=== PATIENT | female | born 1970 | race Hispanic/Latino ===

== ENCOUNTER → 2017-05-14 | Day surgery (SDC) | payer BC, OTHER ==
[~2017-05-14] MED LIST: FENTANYL CITRATE/PF 100MCG/2 ML INJ ONE; HYDROCHLOROTHIA25 MG PO; HYOSCYAMINE SULFATE 0.5 MG/ML AMP ONE; IRON PO; LIDOCAINE HCL 2% LOCAL INJ 5 ML SDV VIAL INJ ONE; MIDAZOLAM HCL 2 MG/2 ML VIAL ONE; PROPOFOL IV EMULSION 10 MG/ML 50 ML VIAL ONE; VITAMIN B12
--- NOTE | 2017-05-14 10:10 | Operative Report ---
DATE OF PROCEDURE: May 14, 2017 PROCEDURE PERFORMED: Esophagogastroduodenoscopy and a colonoscopy with polypectomy. REFERRING PHYSICIAN: Dr. Ban Polk INDICATIONS FOR EGD: Heartburn, indigestion, bloating. INDICATIONS FOR COLONOSCOPY: Lower abdominal pain, bright red blood per rectum. MEDICATION: Patient was done under MAC. Please see anesthesiologist note. PROCEDURE IN DETAIL: With the patient in left lateral decubitus position, flexible fiberoptic Olympus gastroscope was introduced into the esophagus under direct visualization without any difficulty. There were some longitudinal furrows and some concentric rings noted in the esophagus compatible with eosinophilic esophagitis, and biopsies were obtained. An erosion was noted in the distal esophagus. The GE junction was nodular and friable, and was biopsied. The scope was then advanced with ease into her stomach traversing a small sliding hiatal hernia. Mucosa overlying the antrum and the body revealed some diffuse erythema and moderate edema, and biopsies were obtained and sent to stain for H. pylori. The pylorus was of normal contour and shape, it was intubated with ease and the scope was advanced all the way to the second portion of the duodenum. The scope was then withdrawn slowly. Mucosa overlying the proximal second portion and the duodenal bulb appeared to be within normal limits. The scope was then withdrawn back into the stomach and retroflexed, and the mucosa overlying the fundus and the cardia appeared to be within normal limits. The scope was then straightened out. The stomach was decompressed. The scope was subsequently withdrawn. Patient tolerated the procedure well. IMPRESSION: 1. Rule out eosinophilic esophagitis. 2. Distal erosive esophagitis. 3. Nodular gastroesophageal junction, biopsied. 4. Small sliding hiatal hernia. 5. Gastritis, biopsied. Biopsy sent to stain for Helicobacter pylori. PLAN: Follow up histology. Initiate Protonix 40 mg 1 p.o. q.a.m. a.c. Patient was then turned around. After adequate lubrication of the anal canal, a flexible fiberoptic Olympus colonoscope was inserted into the rectum with ease and advanced all the way to the cecum. The scope was then withdrawn slowly. Mucosa overlying the cecum, ascending colon, transverse colon, and descending colon appeared to be within normal limits. One polyp was snared from the sigmoid colon. There was a segment in the sigmoid colon, it was effaced, and biopsies were obtained to rule out segmental colitis. The rectum appeared to be within normal limits. One minute polyp was noted in the distal rectum that was hot biopsied. The scope was then retroflexed into the distal rectum and the area around the dentate line grossly appeared to be within normal limits. The scope was then straightened out. The rectosigmoid area as well as the distal rectal area were decompressed. The scope was subsequently withdrawn. Patient tolerated the procedure well. IMPRESSION: 1. Sigmoid colon polyp, snared. 2. Rule out segmental colitis, sigmoid colon. 3. Rectal polyp, hot biopsied. PLAN: Follow up histology. Initiate high-fiber low-fat diet. Initiate high-fiber supplement. Start VSL#3 DS 1 p.o. b.i.d. Patient will need a followup colonoscopy in 3 years. Job#: [id number] cc:BAN STODDARD MD
== END | disposition home or self-care (01) ==
LOC: OR 06:47
PROVIDERS: ATTEND Internal Medicine Gastroenterology
DX: K29.50 Unspecified chronic gastritis without bleeding (principal); D12.5 Benign neoplasm of sigmoid colon; K62.1 Rectal polyp; A04.8 Other specified bacterial intestinal infections; K20.0 Eosinophilic esophagitis; K22.10 Ulcer of esophagus without bleeding; K44.9 Diaphragmatic hernia without obstruction or gangrene; I10 Essential (primary) hypertension; Z80.0 Family history of malignant neoplasm of digestive organs
CPT/HCPCS: 43239; 45380; 45384; 45385; J1980; J2001; J2250

== ENCOUNTER 2018-02-13 14:59 | Emergency (ER) | payer BC, OTHER ==
[~2018-02-13] VITALS: Ht 157.5 cm; Wt 71.2 kg
[~2018-02-13 14:59] MED LIST changes: -FENTANYL CITRATE/PF 100MCG/2 ML INJ ONE; -HYOSCYAMINE SULFATE 0.5 MG/ML AMP ONE; -LIDOCAINE HCL 2% LOCAL INJ 5 ML SDV VIAL INJ ONE; -MIDAZOLAM HCL 2 MG/2 ML VIAL ONE; -PROPOFOL IV EMULSION 10 MG/ML 50 ML VIAL ONE
== END 2018-02-13 21:29 | disposition left against medical advice (07) ==
LOC: ER 14:59
DX: R07.9 Chest pain, unspecified (principal)
CPT/HCPCS: 93005

== ENCOUNTER → 2019-10-30 | Day surgery (SDC) | payer OTHER ==
[2019-10-25 11:48] LABS: BASOPHILS % 0.6 % (0.0-1.0); EOSINOPHILS # (AUTO) 0.4 (0.0-0.4); HEMATOCRIT 45.1 % (34.2-44.1); HEMOGLOBIN 14.6 g/dL (12.0-16.0); LYMPHOCYTES # (AUTO) 2.5 (1.0-3.2); LYMPHOCYTES % 37.8 % (18.0-39.1); MEAN CORPUSCULAR HEMOGLOBIN 29.9 pg (28-32); MEAN CORPUSCULAR HGB CONC 32.4 g/dL (31-35); MEAN CORPUSCULAR VOLUME 92.4 fL (81-99); MONOCYTES # (AUTO) 0.5 (0.2-0.8); MONOCYTES % 8.3 % (4.4-11.3); NEUTROPHILS # (AUTO) 3.1 (2.1-6.9); NEUTROPHILS % 47.1 % (38.7-80.0); PLATELET COUNT 229 x10e3/uL (140-360); RED BLOOD COUNT 4.88 x10e6/uL (3.6-5.1); RED CELL DISTRIBUTION WIDTH 12.6 % (11.7-14.4)
[2019-10-25 12:56] LABS: ALANINE AMINOTRANSFERASE 43 IU/L (0-55); ALBUMIN 4.4 g/dL (3.5-5.0); ALBUMIN/GLOBULIN RATIO 1.4 (0.8-2.0); ALKALINE PHOSPHATASE 106 IU/L (40-150); ANION GAP 13.1 mmol/L (8-16); BLOOD UREA NITROGEN 12 mg/dL (7-26); BUN/CREATININE RATIO 14 (6-25); CALCIUM 9.4 mg/dL (8.4-10.2); CARBON DIOXIDE 24 mmol/L (22-29); CHLORIDE 107 mmol/L (98-107); CREATININE, SERUM 0.87 mg/dL (0.57-1.11); EST GLOMERULAR FILTRATION RATE > 60 ML/MIN (60-); GLUCOSE 105 mg/dL (74-118); POTASSIUM 4.1 mmol/L (3.5-5.1); SODIUM 140 mmol/L (136-145)
[~2019-10-30] MED LIST changes: +BUPIVACAINE HCL 0.5% INJ 30 ML VIAL INJ ONE; +BUPIVACAINE LIPOSOME/PF 266 MG/20 ML IJ ONE; +CEFAZOLIN SOD 1 GM/NS 50ML 100 ML IV ONE; +DEXAMETHASONE SOD PHOS INJ 4 MG/ML VIAL ONE; +EPHEDRINE SULFATE INJ 50 MG/ML VIAL ONE; +ESTROGENS CONJUGATED VAGINAL CR 45 GM TUBE PV ONE; +FENTANYL CITRATE/PF 100MCG/2 ML INJ ONE; +GLYCOPYRROLATE INJ 0.2 MG/ML VIAL ONE; +KETOROLAC TROMETHAMINE 30 MG/ML VIAL ONE; +LIDOCAINE 1% W/EPINEPHRINE 20 ML VIAL ONE; +LIDOCAINE HCL 2% LOCAL INJ 5 ML SDV VIAL INJ ONE; +MIDAZOLAM HCL 2 MG/2 ML VIAL ONE; +MORPHINE SULFATE INJ 10 MG/ML ONE; +NEOSTIGMINE 1 MG/ML 10ML VIAL ONE; +ONDANSETRON HCL INJ 2MG/ML 2ML 2 MG/ML VIAL ONE; +PROPOFOL IV EMULSION 10 MG/ML 20 ML VIAL ONE; +ROCURONIUM BROMIDE 10 MG/ML 5ML VIAL IV ONE; +SEVOFLURANE INHAL SOLN 250 ML PEN BTL ONE
[2019-10-30 11:35] VITALS: BP 143/96
--- NOTE | 2019-10-31 00:26 | Operative Report ---
DATE OF PROCEDURE: 10/30/2019 SURGEON: Marya Smiley MD [employer] APPRENTICE: Dr. Anel Sterling. ANESTHESIA: General. 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 PROCEDURE PERFORMED: Anterior and posterior colporrhaphy with sacrospinous colpopexy and transobturator taping with diagnostic cystoscopy. COMPLICATIONS: None. ESTIMATED BLOOD LOSS: 100 mL. FINDINGS: The patient had vaginal wall prolapse with a grade 1 cystocele and a grade 3 rectocele. PROCEDURE IN DETAIL: The risks, benefits, indications, and alternatives of the procedure were reviewed with the patient and informed consent was obtained. The patient was taken to the operating room, where general anesthesia was obtained. The patient was placed in dorsal lithotomy position in candy-cane stirrups and prepped and draped in typical sterile fashion. A weighted speculum was then placed in the vagina. The lateral edges of the vaginal cuff were then held with Allis clamps on tension while a solution of 0.5% lidocaine with epinephrine was injected just below the vaginal mucosa throughout the area of the cystocele. Several Allis clamps were placed 3-4 cm apart up the midline of the anterior vaginal wall. A transverse incision was then made at the vaginal mucosa just superior to the vaginal cuff. The edges of the vaginal mucosa were held with hemostats and the Metzenbaum scissors were used to undermine the mucosa from the underlying fascia. The mucosa was then opened with the scissors in the midline to within 2 cm of the urethral meatus. As the vagina was opened, the lateral edges of the mucosa were grasped with Allis clamps. The fascia was from vaginal mucosa using both sharp and blunt dissection until the bladder and urethra were from the vaginal mucosa and clearly identified. The anterior repair was started by placing 2-0 Vicryl suture in the pubovesical cervical fascia starting approximately 2 cm below the urethral meatus. The remaining fascia was plicated in midline with multiple interrupted 2-0 Vicryl sutures until the entire cystocele had been reduced. The edges of the vaginal mucosa were held on tension and the excessive vaginal mucosa was trimmed away using the Vail scissors. The vaginal mucosa was then sutured in midline with continuous 0 Vicryl. Attention was then turned to the transobturator tape placement. A Aguilera catheter was placed into the bladder. A solution of 0.5% lidocaine with epinephrine was injected just below the vaginal mucosa retirement between the meatus and the uterovesical junction and on each side of the urethra deep to the endopelvic fascia. An approximately 1 cm incision was made vertically at the level of the mid urethra through the vaginal mucosa. A combination of blunt and sharp dissection was performed until the pubic rami were palpable bilaterally. The connective tissues were dissected bluntly and sharply to allow placement of the Obtryx trocars. 5 mm incisions were then made with the scalpel in the mid crural line at the level of the clitoris bilaterally. The trocar was then placed through the incision on the patient's left side, pierced through the obturator membrane, and guided along the posterior aspect of the pubic rami until the trocar was brought out through the vaginal mucosal incision. The TOT sling was placed on the trocar and guided out through the trocar tract. A similar procedure was then performed on the contralateral side. The transvaginal tape was then pulled up to a point lying loosely under the urethra, that freely admitted the tips of the surgical scissors. The Aguilera catheter was then removed and diagnostic cystoscopy was performed. The bladder and urethra were inspected for perforation and none was noted. The plastic sheaths were then removed from the sling and the ends were cut below the level of the skin at the exit points. The skin punctures were then closed with Dermabond and the vaginal mucosa was closed with 2-0 Vicryl running suture. The bladder was emptied of all fluid. Attention was then turned to the posterior repair, where the apices of the posterior fourchette were grasped with Allis clamps and a solution of 0.5% lidocaine with epinephrine was injected just below the vaginal mucosa throughout the area of the rectocele. A transverse incision was then made with a scalpel at the level of the hymenal ring. An additional Allis clamp was placed in the midline at the top of the rectocele and 2 hemostats were placed at the edges of the mucosa for retraction. Metzenbaum scissors were then inserted under the posterior vaginal mucosa dissecting the posterior mucosa off the rectovaginal fascia. A midline incision was then made in the mucosa. This process was repeated until the superior apex of the rectocele was reached. A finger was then inserted through the incision in the posterior vaginal mucosa dissecting out the rectovaginal space on the patient's right side. The ischial spine and sacrospinous ligament were palpated and loose areolar tissue was bluntly dissected off the ligament. A zone approximately 1.5 cm medial to the ischial spine was selected for insertion of the suture. A nContact Surgical[employer] suture capturing device was loaded with 0 Vicryl suture and was then introduced into the space and passed through the sacrospinous ligament. This entire procedure was then repeated on the patient's left sacrospinous ligament. The ends of the suture previously inserted through the sacrospinous ligament were placed through the muscular layer of the vagina using a free needle. Interrupted sutures of 2-0 Vicryl were then placed to reapproximate the superficial transverse perineal muscle and levator ani muscle respectively. The vagina was then closed over this repair using running 2-0 Vicryl suture. The bulbocavernosus was then reapproximated in the midline with single interrupted 2-0 Vicryl suture. The perineal body was then repaired with 2-0 Vicryl in subcuticular fashion. Attention was then returned to the sacrospinous ligament. Fixation where the previously clamped sutures were tied drying vaginal vault directly to the level of ligament and affixing them in place. Vaginal packing soaked in Premarin cream was placed in the vagina and all instruments were removed. The patient was awakened from general anesthesia and brought to the recovery room in stable condition having tolerated the procedure well. All sponge, lap, needle, and instrument counts were correct x2. Marya Smiley MD [facility]/MODL /[id number]
== END | disposition home or self-care (01) ==
LOC: OR 05:22
PROVIDERS: ATTEND Obstetrics & Gynecology Obstetrics
DX: N81.4 Uterovaginal prolapse, unspecified (principal); N39.3 Stress incontinence (female) (male); Z90.710 Acquired absence of both cervix and uterus; K21.9 Gastro-esophageal reflux disease without esophagitis; Z01.810 Encounter for preprocedural cardiovascular examination; Z01.812 Encounter for preprocedural laboratory examination; Z11.59 Encounter for screening for other viral diseases
CPT/HCPCS: 36415; 57265; 57282; 57288; 80053; 85025; 93005; C1781; J0690; J1100; J1885; J2001; J2250; J2270; J2405; J2704; J2710; J3010; U0002